=== PATIENT | female | born 1960 | race Caucasian/White ===

== ENCOUNTER 2017-11-19 20:07 | Emergency (ER) | payer OTHER, MEDICARE ==
[~2017-11-19] VITALS: Ht 154.9 cm; Wt 65.0 kg
[~2017-11-19 20:07] MED LIST: ATOR20TA66 PO; ESTR0.5T PO; LISI1TAB11 PO; MORP100T21 PO; OMEP20CA10 PO
[2017-11-19] MEDS ORDERED: ondansetron 4mg rapidly disintigrating tab PO ONE (23:05)
[2017-11-19] MEDS ORDERED: LOPE2CAP PO (23:11)
[2017-11-19] MEDS ORDERED: CLON-529 PO (23:11)
[2017-11-19] MEDS ORDERED: ONDA4TAB9 PO (23:11)
[2017-11-19] MEDS ORDERED: LORazepam 1 MG tablet PO ONE (23:15)
[2017-11-19 23:27] VITALS: BP 115/65
== END 2017-11-19 23:29 | disposition home or self-care (01) ==
LOC: ER 20:07
DX: F11.23 Opioid dependence with withdrawal (principal); G89.29 Other chronic pain; Z90.710 Acquired absence of both cervix and uterus; Z98.890 Other specified postprocedural states; Z79.899 Other long term (current) drug therapy
CPT/HCPCS: 99283

== ENCOUNTER 2022-02-20 10:27 | Outpatient (CLI) | payer MEDICARE ==
[~2022-02-20 10:27] MED LIST changes: +CLON-529 PO; -LISI1TAB11 PO; +LISI1TAB51 PO; +LOPE2CAP PO; -OMEP20CA10 PO; +OMEP20CA15 PO
== END 2022-02-20 23:59 | disposition home or self-care (01) ==
LOC: VAS 10:27
PROVIDERS: ATTEND Family Medicine
DX: I87.2 Venous insufficiency (chronic) (peripheral) (principal); M79.661 Pain in right lower leg
CPT/HCPCS: 93970

== ENCOUNTER 2022-10-11 09:45 | Emergency (ER) | payer MEDICARE ==
[~2022-10-11] VITALS: Ht 154.9 cm; Wt 50.0 kg
[2022-10-11 11:21] VITALS: BP 130/85
[2022-10-11 11:36] LABS: CLARITY,URINE SLIGHTLY CLOUDY (Clear); COLOR,URINE YELLOW (Yellow); GLUCOSE, URINE NEGATIVE (Neg); KETONES,URINE NEGATIVE (Neg); LEUKOCYTE ESTERASE ,URINE NEGATIVE (Neg); NITRITES, URINE NEGATIVE (Neg); OCCULT BLOOD,URINE TRACE-INTACT (Neg); PROTEIN,URINE TRACE mg/dl (Neg); UA COLLECTION TYPE CLN CATCH MIDSTREAM; UROBILINOGEN,URINE 0.2 E.U/dL (0.2-1.0)
[2022-10-11 11:51] LABS: BACTERIA,URINE FEW /HPF (Neg); MUCUS STRANDS MODERATE /LPF (Neg); RBC,URINE 0-2 /HPF (0-2); SQUAMOUS EPITHELIAL CELL,UR MODERATE /LPF (FEW); WBC,URINE 0-4 /HPF (0-4)
[2022-10-11 12:10] LABS: BASOPHILS % (AUTO) 0.6 % (0-1); EOSINOPHILS % (AUTO) 0 % (0-6); HEMATOCRIT 40.9 % (35.0-45.0); HEMOGLOBIN 13.7 g/dl (12.0-16.0); LYMPHOCYTES # (AUTO) 2.4 X10'3 (1.1-4.8); LYMPHOCYTES % (AUTO) 26.8 % (21-51); MEAN CORPUSCULAR HEMOGLOBIN 30.5 PG (27.0-31.0); MEAN CORPUSCULAR HGB CONC 33.4 g/dL (33.0-36.5); MEAN CORPUSCULAR VOLUME 91.3 FL (78-98); MEAN PLATELET VOLUME 8.4 FL (7.4-10.4); MONOCYTES # (AUTO) 0.7 X10'3 (0-0.9); MONOCYTES % (AUTO) 7.9 % (2-12); NEUTROPHILS # (AUTO) 5.7 X10'3 (1.8-7.7); NEUTROPHILS % (AUTO) 64.7 % (42-75); PLATELET COUNT 448 X10'3 (140-440); RED BLOOD COUNT 4.48 X10'6 (4.20-5.60); WHITE BLOOD COUNT 8.8 X10'3 (4.5-11.0)
[2022-10-11 12:25] LABS: ALANINE AMINOTRANSFERASE 11 U/L (12-78); ALBUMIN 3.7 G/DL (3.4-5.0); ALKALINE PHOSPHATASE 65 IU/L (46-116); ANION GAP 11 (8-16); ASPARTATE AMINO TRANSFERASE 15 U/L (10-37); BILIRUBIN,TOTAL 0.4 MG/DL (0.1-1.0); BLOOD UREA NITROGEN 14 MG/DL (7-18); BUN/CREATININE RATIO 19.4 (6.6-38.0); CALCIUM 8.7 MG/DL (8.5-10.1); CHLORIDE 101 MMOL/L (99-107); CREATININE 0.72 MG/DL (0.40-0.90); GLUCOSE 122 MG/DL (70-104); POTASSIUM 3.6 MMOL/L (3.5-5.1); SODIUM 138 MMOL/L (135-145); TOTAL CARBON DIOXIDE 25.7 MMOL/L (24-32); TOTAL PROTEIN 7.4 G/DL (6.4-8.2); eGFR 82 ML/MIN
--- NOTE | 2022-10-11 13:05 | NUR ---
US TECH AT BEDSIDE.
== END 2022-10-11 13:39 | disposition home or self-care (01) ==
LOC: ER 09:45
DX: R10.13 Epigastric pain (principal); Z88.8 Allergy status to other drugs, medicaments and biological substances; Z98.890 Other specified postprocedural states; Z90.710 Acquired absence of both cervix and uterus
CPT/HCPCS: 36415; 76700; 80053; 81001; 85025; 99284

== ENCOUNTER 2024-05-10 13:43 | Inpatient (IN) | payer MEDICARE ==
[~2024-05-10] VITALS: Ht 154.9 cm; Wt 50.0 kg
[~2024-05-10 13:43] MED LIST changes: -CLON-529 PO; -ESTR0.5T PO; +ESTR0.5T28 PO; +ESZO3TAB44 PO; +LACT1CAP26 PO; -LOPE2CAP PO; +MORP-92 PO; -MORP100T21 PO; -OMEP20CA15 PO; +ONDA-245 PO; +PANT40TA54 PO; +PSYL575P22 PO
[2024-05-10 14:20] LABS: BASOPHILS # (AUTO) 0.1 X10'3 (0-0.2); BASOPHILS % (AUTO) 0.8 % (0-1); EOSINOPHILS % (AUTO) 0.1 % (0-6); HEMATOCRIT 34.6 % (35.0-45.0); HEMOGLOBIN 11.4 g/dl (12.0-16.0); LYMPHOCYTES # (AUTO) 1.5 X10'3 (1.1-4.8); LYMPHOCYTES % (AUTO) 13.8 % (21-51); MEAN CORPUSCULAR HEMOGLOBIN 29.8 PG (27.0-31.0); MEAN CORPUSCULAR HGB CONC 32.8 g/dL (33.0-36.5); MEAN CORPUSCULAR VOLUME 90.9 FL (78-98); MEAN PLATELET VOLUME 7.7 FL (7.4-10.4); MONOCYTES # (AUTO) 0.7 X10'3 (0-0.9); MONOCYTES % (AUTO) 6.6 % (2-12); NEUTROPHILS # (AUTO) 8.4 X10'3 (1.8-7.7); NEUTROPHILS % (AUTO) 78.7 % (42-75); PLATELET COUNT 392 X10'3 (140-440); RED BLOOD COUNT 3.81 X10'6 (4.20-5.60); WHITE BLOOD COUNT 10.7 X10'3 (4.5-11.0)
[2024-05-10 14:42] LABS: ALANINE AMINOTRANSFERASE 18 U/L (12-78); ALBUMIN 2.9 G/DL (3.4-5.0); ALBUMIN/GLOBULIN RATIO 1.1 (1.1-1.5); ALKALINE PHOSPHATASE 59 IU/L (46-116); ANION GAP 7 (8-16); ASPARTATE AMINO TRANSFERASE 27 U/L (10-37); BILIRUBIN,TOTAL 0.2 MG/DL (0.1-1.0); BLOOD UREA NITROGEN 15 MG/DL (7-18); BUN/CREATININE RATIO 15.3 (10.0-20.0); CALCIUM 7.3 MG/DL (8.5-10.1); CHLORIDE 107 MMOL/L (99-107); CREATININE 0.98 MG/DL (0.40-0.90); PRO BRAIN NATRIURETIC PEPTIDE 63 PG/ML (0-125); SODIUM 140 MMOL/L (135-145); TOTAL CARBON DIOXIDE 25.9 MMOL/L (24-32); TOTAL PROTEIN 5.5 G/DL (6.4-8.2); eCRCL 44 ML/MIN; eGFR 57 ML/MIN
[2024-05-10 14:54] LABS: GLUCOSE 134 MG/DL (70-104); POTASSIUM 2.9 MMOL/L (3.5-5.1)
[2024-05-10] MEDS: D5-1/2NS w/20 mEq potassium per 1000ml IV ONE (15:43)
[2024-05-10] MEDS: potassium Cl 20 mEq SR tablet PO STA (15:43)
[2024-05-10 18:09] LABS: POTASSIUM 3.2 MMOL/L (3.5-5.1)
[2024-05-10 18:12] LABS: BILIRUBIN,URINE NEGATIVE (Neg); CLARITY,URINE SLIGHTLY CLOUDY (Clear); COLOR,URINE YELLOW (Yellow); GLUCOSE, URINE NEGATIVE (Neg); KETONES,URINE TRACE mg/dl (Neg); LEUKOCYTE ESTERASE ,URINE NEGATIVE (Neg); NITRITES, URINE NEGATIVE (Neg); OCCULT BLOOD,URINE NEGATIVE (Neg); PROTEIN,URINE 30 mg/dl (Neg); UROBILINOGEN,URINE 0.2 E.U/dL (0.2-1.0)
[2024-05-10 18:17] LABS: UA COLLECTION TYPE CLN CATCH MIDSTREAM
[2024-05-10 18:21] LABS: ETHANOL < 10 MG/DL (<10)
[2024-05-10 18:22] LABS: SQUAMOUS EPITHELIAL CELL,UR MANY /LPF (FEW)
[2024-05-10 18:23] LABS: MUCUS STRANDS FEW /LPF (Neg)
[2024-05-10 18:24] LABS: BACTERIA,URINE FEW /HPF (Neg); CAL OXALATE CRYSTALS 2+ /HPF (NEGATIVE); RBC,URINE 0-2 /HPF (0-2)
[2024-05-10 18:34] LABS: URINE AMPHETAMINE SCREEN NEGATIVE (Neg); URINE BARBITUATE SCREEN NEGATIVE (Neg); URINE BENZODIAZEPINES SCREEN NEGATIVE (Neg); URINE CANNABINOID SCREEN POSITIVE (Neg); URINE COCAINE SCREEN NEGATIVE (Neg); URINE METHADONE SCREEN NEGATIVE (Neg); URINE OPIATE SCREEN NEGATIVE (Neg); URINE PHENCYCLIDINE SCREEN NEGATIVE (Neg)
[2024-05-10 18:51] VITALS: TEMP 98
[2024-05-10] MEDS ORDERED: ondansetron/PF 4mg/2ml inj IV PRN (19:55)
[2024-05-10] MEDS ORDERED: acetaminophen 325mg tablet PO PRN (19:55)
[2024-05-10] MEDS: NORepinephrine 8mg/ 250ml NS 250 ML IV PRN (20:23)
[2024-05-10] MEDS: PERFLUTREN PROTEIN-A MICROSPHR (Optison) 0.22 MG/ML 3ML VIAL IV ONE (20:31)
[2024-05-10] MEDS: enoxaparin 40mg/0.4ml syringe SUBCUT SCH (20:35)
[2024-05-10 20:54] LABS: D-DIMER 0.43 MG/L FEU (0-0.50)
[2024-05-10 21:04] LABS: FREE T4 (FREE THYROXINE) 0.79 NG/DL (0.73-1.40); MAGNESIUM 2.2 MG/DL (1.5-2.4); THYROID STIMULATING HORMONE 0.62 ulU/ml (0.34-4.50)
[2024-05-10 21:54] VITALS: BP 121/65; PULSE 63; RESP 10; O2SAT 98
[2024-05-10] MEDS ORDERED: PANT40TA54 PO (22:00)
[2024-05-10] MEDS ORDERED: GABA300C PO (22:00)
[2024-05-10 22:43] VITALS: RESP 12; O2SAT 99
[2024-05-10 23:00] VITALS: BP 103/50; PULSE 70; RESP 12; O2SAT 98
[2024-05-10] MEDS: gabapentin 300mg capsule PO ONE (23:51)
[2024-05-11] VITALS (10 sets, daily range): BP systolic 88–113; BP diastolic 52–64; PULSE 61–75; RESP 12–16; O2SAT 92–99
[2024-05-11] MEDS: acetaminophen 325mg tablet PO PRN (02:25)
[2024-05-11] MEDS: gabapentin 300mg capsule PO SCH (12:06)
[2024-05-11] MEDS ORDERED: NO HOME MEDS (12:24)
[2024-05-11] MEDS ORDERED: pantoprazole 40mg Tablet.DR PO SCH (17:00)
[2024-05-11] MEDS ORDERED: gabapentin 300mg capsule PO SCH (20:00)
[2024-05-11] MEDS ORDERED: atorvastatin 20mg tablet PO SCH (21:00)
[2024-05-12] MEDS ORDERED: HYDROchlorothiazide 12.5mg capsule PO SCH (08:00)
[2024-05-12] MEDS ORDERED: lisinopril 20mg tablet PO SCH (08:00)
== END 2024-05-11 13:48 | disposition home or self-care (01) | DRG 314 ==
LOC: ER 13:44 → ED HOLD 20:03 → CICU 2S 21:51
PROVIDERS: ADMIT Internal Medicine Sleep Medicine; ATTEND Internal Medicine Sleep Medicine
DX: I95.9 Hypotension, unspecified (principal); R57.8 Other shock; E87.6 Hypokalemia; F17.210 Nicotine dependence, cigarettes, uncomplicated; I10 Essential (primary) hypertension; G89.29 Other chronic pain; Z88.2 Allergy status to sulfonamides; Z90.49 Acquired absence of other specified parts of digestive tract; Z90.710 Acquired absence of both cervix and uterus; Z88.8 Allergy status to other drugs, medicaments and biological substances; Z79.899 Other long term (current) drug therapy
CPT/HCPCS: 36415; 70450; 71045; 80053; 80305; 80320; 81001; 83735; 83880; 84132; 84145; 84439; 84443; 84484; 85025; 85379; 87081; 93005; 93306; 99291; 99292; C1758; G0378; J1650; J3480

== ENCOUNTER 2024-08-02 14:55 | Outpatient (CLI) | payer MEDICARE ==
[~2024-08-02 14:55] MED LIST changes: -ESZO3TAB44 PO; +GABA300C PO; -LACT1CAP26 PO; -MORP-92 PO; +NO HOME MEDS; -ONDA-245 PO; -PSYL575P22 PO
== END 2024-08-02 23:59 | disposition home or self-care (01) ==
LOC: RAD 14:55
PROVIDERS: ATTEND Student in an Organized Health Care Education/Training Program
DX: M77.32 Calcaneal spur, left foot (principal); M79.672 Pain in left foot
CPT/HCPCS: 73610